=== PATIENT | male | born 1995 | race African-American/Black ===

== ENCOUNTER 2021-03-17 21:14 | Emergency (ER) | payer BC ==
[~2021-03-17] VITALS: Ht 180.3 cm; Wt 75.0 kg
[2021-03-17] MEDS ORDERED: FLUORESCEIN SODIUM 1 MG STRIP OD ONE (22:30)
[2021-03-17] MEDS ORDERED: PROPARACAINE HCL 0.5% 15 ML OPHTHALMIC SOLUTION OD ONE (22:30)
[2021-03-18] VITALS: BP 124/86
== END 2021-03-18 00:05 | disposition home or self-care (01) ==
LOC: EMS 21:14
DX: H16.002 Unspecified corneal ulcer, left eye (principal); F17.200 Nicotine dependence, unspecified, uncomplicated; F12.90 Cannabis use, unspecified, uncomplicated
CPT/HCPCS: 99283